=== PATIENT | female | born 1980 | race Caucasian/White ===

== ENCOUNTER 2016-02-18 19:00 | Emergency (ER) | payer OTHER ==
--- NOTE | 2016-02-18 19:25 | ER Document Report ---
ED Medical Screen (RME) - General Stated Complaint: PALPITATIONS,RAPID HEART RATE Time seen by provider: 19:19 Mode of Arrival: Ambulatory Information source: Patient Notes: 35-year-old female complaining of skipping beats, then palpitations that she has had for [address] Booth who has been her physician (albert krishnamurthy) wanted to do an ablation for the SVT prior to them moving to [place], but could not get the SVT to repeat itself enough in the lab to do the procedure 2008. She has recently moved back and the last 2 days has had increased episodes of the palpitations at this point she feels like it is easing off. Her EKG in triage is normal sinus rhythm. Recently completed the zyoOcclutechtch remote 3 week monitor and doesn't know the results yet. TRAVEL OUTSIDE OF THE [place] IN LAST 30 DAYS: No - Related Data Allergies/Adverse Reactions: acetaminophen [From Percocet] Allergy (Severe, Verified 11/17/14 09:00) Generalized Itching oxycodone HCl [From Percocet] Allergy (Severe, Verified 11/17/14 09:00) Generalized Itching tree nuts Allergy (Severe, Uncoded 06/26/10 14:45) itch,stuffy head Past Medical History - Past Medical History Cardiac Medical History: Denies: Hx Coronary Artery Disease, Hx Heart Attack, Hx Hypertension Pulmonary Medical History: Denies: Hx Asthma, Hx Bronchitis, Hx COPD, Hx Pneumonia Neurological Medical History: Denies: Hx Cerebrovascular Accident, Hx Seizures Musculoskeltal Medical History: Denies Hx Arthritis Past Surgical History: Reports: Hx Section, Hx Cholecystectomy, Hx Orthopedic Surgery - right knee sx. Denies: Hx Pacemaker - Immunizations Immunizations up to date: Yes Hx Diphtheria, Pertussis, Tetanus Vaccination: Yes
--- NOTE | 2016-02-18 21:28 | ER Document Report ---
ED Cardiac - General Chief Complaint: Palpitations Stated Complaint: PALPITATIONS,RAPID HEART RATE Mode of Arrival: Ambulatory Information source: Patient Notes: Patient is a 35-year-old female who presents to the ER today for complaints of palpitations that should she has had since 2005. Patient does see a ornament stapler for them and has been diagnosed with PVCs but has not been on medication in many years for it. She states that the last couple of days she has had PVCs a lot more than she usually does. She states that it is only uncomfortable in her chest because she can feel the palpitations, but denies any pain, shortness of breath, nausea, vomiting, sweating. She states that they last for minutes at a time. She just finished wearing a monitor for 2 weeks and they didn't catch them on the monitor is PVCs. She is due to follow up with ornament stapler this week but called the nurse today and was told to come to the emergency department. TRAVEL OUTSIDE OF THE [place] IN LAST 30 DAYS: No - Related Data Allergies/Adverse Reactions: acetaminophen [From Percocet] Allergy (Severe, Verified 11/17/14 09:00) Generalized Itching oxycodone HCl [From Percocet] Allergy (Severe, Verified 11/17/14 09:00) Generalized Itching tree nuts Allergy (Severe, Uncoded 06/26/10 14:45) itch,stuffy head Past Medical History - General Information source: Patient - Social History Smoking Status: Unknown if Ever Smoked Family History: Reviewed & Not Pertinent Patient has suicidal ideation: No Patient has homicidal ideation: No - Past Medical History Cardiac Medical History: Denies: Hx Coronary Artery Disease, Hx Heart Attack, Hx Hypertension Pulmonary Medical History: Denies: Hx Asthma, Hx Bronchitis, Hx COPD, Hx Pneumonia Neurological Medical History: Denies: Hx Cerebrovascular Accident, Hx Seizures Musculoskeltal Medical History: Denies Hx Arthritis Past Surgical History: Reports: Hx Section, Hx Cholecystectomy, Hx Orthopedic Surgery - right knee sx. Denies: Hx Pacemaker - Immunizations Immunizations up to date: Yes Hx Diphtheria, Pertussis, Tetanus Vaccination: Yes Review of Systems - Review of Systems Constitutional: No symptoms reported EENT: No symptoms reported Cardiovascular: See HPI Respiratory: No symptoms reported Gastrointestinal: No symptoms reported Genitourinary: No symptoms reported Female Genitourinary: No symptoms reported Musculoskeletal: No symptoms reported Skin: No symptoms reported Hematologic/Lymphatic: No symptoms reported Neurological/Psychological: No symptoms reported Physical Exam - Notes Notes: PHYSICAL EXAMINATION: GENERAL: Well-appearing and in no acute distress. HEAD: Atraumatic, normocephalic. EYES: Pupils equal round and reactive to light, extraocular movements intact, sclera anicteric, conjunctiva are normal. NECK: Normal range of motion, supple without lymphadenopathy LUNGS: CTAB and equal. No wheezes rales or rhonchi. HEART: Regular rate and rhythm without murmurs ABDOMEN: Soft, no tenderness. No guarding, no rebound EXTREMITIES: Normal range of motion, no pitting edema. No cyanosis. NEUROLOGICAL: Cranial nerves grossly intact. Normal sensory/motor exams. PSYCH: Normal mood, normal affect. SKIN: Warm, Dry, normal turgor, no rashes or lesions noted Course - Re-evaluation Re-evalutation: 02/18/16 21:29 EKG here revealed a normal sinus rhythm with no evidence of PACs or PVCs, other abnormality at a rate of 68 bpm. Patient did state that she kept going in and out of PVCs here but we never caught them on EKG or when I was examining her. At this time I will place her on a beta michelle which she has actually tried before but it has been many years and have her follow-up with the ornament stapler. She declines any blood work today and I agree that it is not likely necessary at this time as she has a pre-existing diagnosis of PVCs and clinically it sounds like what is going on today. Discharge - Discharge Clinical Impression: PVC (premature ventricular contraction) Condition: Stable Disposition: HOME, SELF-CARE Instructions: Beta Blockers ([facility]), Palpitations (Irregular or Rapid Heartrate) ([facility]) Additional Instructions: Return immediately for any new or worsening symptoms. Follow up with ornament stapler, call tomorrow to make followup appointment. Prescriptions: Propranolol HCl [Inderal 10 mg Tablet] 10 mg PO Q12 #28 tab
[2016-02-18] MEDS ORDERED: PROPRANOLOL HCL 10 MG TABLET PO ONE (21:33)
[2016-02-18 22:04] VITALS: BP 112/72
--- NOTE | 2016-02-19 13:43 | EKG REPORT ---
SEVERITY:- NORMAL ECG - SINUS RHYTHM : Confirmed by: Luisana Murphy MD 19-Feb-2016 13:42:23
== END 2016-02-18 22:05 | disposition home or self-care (01) ==
LOC: ER 19:00
DX: I49.3 Ventricular premature depolarization (principal); R00.2 Palpitations; Z88.6 Allergy status to analgesic agent; Z91.018 Allergy to other foods; Z90.49 Acquired absence of other specified parts of digestive tract
CPT/HCPCS: 93005; 93010; 99284

== ENCOUNTER 2016-12-28 05:54 | Emergency (ER) | payer OTHER ==
[2016-12-28 06:09] VITALS: BP 118/83
--- NOTE | 2016-12-28 07:30 | ER Document Report ---
HPI - HPI Patient complains to provider of: facial pain Pain Level: 4 Context: Patient is a 36-year-old female presents emergency department complaining of rhinorrhea for 1 week with new onset sinus congestion yesterday. Patient states that the only thing she is taking [id number] with Tylenol for pain but otherwise denies any decongestants or cold medications. Patient denies any fevers, chills, nausea, vomiting, cough, shortness of breath, sore throat. Otherwise healthy female. Past Medical History - Social History Smoking Status: Smoker,Current Status Unk Family History: Reviewed & Not Pertinent - Past Medical History Cardiac Medical History: Denies: Hx Coronary Artery Disease, Hx Heart Attack, Hx Hypertension Pulmonary Medical History: Denies: Hx Asthma, Hx Bronchitis, Hx COPD, Hx Pneumonia Neurological Medical History: Denies: Hx Cerebrovascular Accident, Hx Seizures Musculoskeltal Medical History: Denies Hx Arthritis Past Surgical History: Reports: Hx Section, Hx Cholecystectomy, Hx Orthopedic Surgery - right knee sx. Denies: Hx Pacemaker - Immunizations Immunizations up to date: Yes Hx Diphtheria, Pertussis, Tetanus Vaccination: Yes Vertical Provider Document - CONSTITUTIONAL Notes: PHYSICAL EXAM GENERAL: Alert, interacts well. HEENT: NCAT, pale conjunctiva, extraocular movements intact, pupils PERRL. external ear normal, no evidence of external auditory canal tenderness, blood/ drainage, cerumen impaction, TM intact with bulging without evidence of effusion , injection, MMM NECK: Full range of motion. Supple. Trachea midline. LUNGS: Clear to auscultation bilaterally, no wheezes, rales, or rhonchi. No respiratory distress. HEART: Regular rate and rhythm. No murmurs, gallops, or rubs. NEUROLOGICAL: Alert and oriented x4. Normal speech. PSYCH: Normal affect, normal mood. SKIN: Warm, dry, normal turgor. No rashes or lesions noted. - INFECTION CONTROL TRAVEL OUTSIDE OF THE [place] IN LAST 30 DAYS: No - RESPIRATORY O2 Sat by Pulse Oximetry: 97 Course - Re-evaluation Re-evalutation: 12/28/16 07:35 Patient is a 36 old female is hemodynamically stable, no acute distress and afebrile. Presentation is consistent with rhinorrhea and sinus congestion without evidence of infection. Patient is afebrile without evidence of purulent drainage or sinus tenderness or erythema. presentation is most consistent with a viral upper respiratory infection. Patient is overall well appearance, vitals within normal limits, well-hydrated. Patient denies any headache, neck pain, and has no evidence of meningismus on examination. Lungs are clear bilaterally. No evidence of respiratory distress. Based on clinical exam and history, I do not suspect an acute pneumonia, meningitis, strep pharyngitis, or an acute encephalitis. No laboratory or imaging testing is indicated at this time. Will discharge patient with return precautions and followup recommendations. They are in agreement this plan have verbalized understanding return precautions. - Vital Signs Vital signs: Temp Pulse Resp BP Pulse Ox 97.9 F 73 16 118/83 97 12/28/16 06:08 12/28/16 06:08 12/28/16 06:08 12/28/16 06:08 12/28/16 06:08 Discharge - Discharge Clinical Impression: Sinus congestion Condition: Good Disposition: HOME, SELF-CARE Additional Instructions: Your symptoms are most likely due to a viral infection it should resolve over the next 7-14 days. You should take [id number] guanfacine per bottle instructions to help thin the mucus. For nasal congestion: I would recommend that you get hpcg-lmz-qxziryo oxymetazoline also known is afrin. Use only per bottle instructions and be sure to never use this for more than 3 days if you can develop severe rebound congestion. You can also utilize pseudophedrine. you may also use tylenol or ibuprofen as needed for aches and thorat discomfort. Please be sure to drink plenty of fluids and get rest. Return to the emergency department he began having difficulty breathing, chest pain, persistent vomiting, or any other symptoms that are concerning to you. Prescriptions: Methylprednisolone [Medrol Dosepack (4 mg/Tab) 21 Tab/Dosepak] 4 mg PO ASDIR PRN #21 tab.ds.pk PRN Reason:
[2016-12-28] MEDS ORDERED: IBUPROFEN 800 MG TABLET PO ONE (07:33)
[2016-12-28] MEDS ORDERED: PSEUDOEPHEDRINE HCL 30 MG TABLET PO ONE (07:33)
== END 2016-12-28 07:48 | disposition home or self-care (01) ==
LOC: ER 05:54
DX: R09.81 Nasal congestion (principal); R51 Headache; F17.200 Nicotine dependence, unspecified, uncomplicated; Z90.49 Acquired absence of other specified parts of digestive tract
CPT/HCPCS: 99283

== ENCOUNTER 2017-08-11 12:08 | Emergency (ER) | payer OTHER ==
[2017-08-11 12:15] VITALS: BP 114/79
[2017-08-11] MEDS ORDERED: IBUPROFEN 800 MG TABLET PO ONE (13:00)
--- NOTE | 2017-08-11 13:02 | ER Document Report ---
ED Fall - General Chief Complaint: Fall Stated Complaint: FALL Time Seen by Provider: 08/11/17 12:49 Mode of Arrival: Wheelchair Information source: Patient Notes: 37-year-old female fell over a wall landing on a metal tree stand. She has pain and her left foot ankle and knee. She is alert and oriented respirations regular and unlabored and is able to hobble but not walk with a steady gait due to the pain. TRAVEL OUTSIDE OF THE [place] IN LAST 30 DAYS: No - HPI Occurred: Just prior to arrival Where: Home, Public place Context: Tripped Associated symptoms: None Location of injury/pain: Ankle, Foot, Knee Quality of pain: Sharp, Throbbing Severity: Mild Pain Level: 2 - Related data Allergies/Adverse Reactions: acetaminophen [From Percocet] Adverse Reaction (Severe, Verified 08/11/17 12:09) Generalized Itching oxycodone HCl [From Percocet] Adverse Reaction (Severe, Verified 08/11/17 12:09) Generalized Itching tree nuts Allergy (Severe, Uncoded 08/11/17 12:09) itch,stuffy head Past Medical History - General Information source: Patient - Social History Smoking Status: Never Smoker Chew tobacco use (# tins/day): No Frequency of alcohol use: Occasional Drug Abuse: None Lives with: Family Family History: Reviewed & Not Pertinent Patient has suicidal ideation: No Patient has homicidal ideation: No - Past Medical History Cardiac Medical History: Reports: None Pulmonary Medical History: Reports: None EENT Medical History: Reports: None Neurological Medical History: Reports: None Endocrine Medical History: Reports: None Renal/ Medical History: Reports: None Malignancy Medical History: Reports: None GI Medical History: Reports: None Musculoskeltal Medical History: Reports None Skin Medical History: Reports None Psychiatric Medical History: Reports: None Traumatic Medical History: Reports: None Infectious Medical History: Reports: None Past Surgical History: Reports: Hx Section, Hx Cholecystectomy, Hx Orthopedic Surgery - right knee sx - Immunizations Immunizations up to date: Yes Hx Diphtheria, Pertussis, Tetanus Vaccination: Yes Review of Systems - Review of Systems Constitutional: No symptoms reported EENT: No symptoms reported Cardiovascular: No symptoms reported Respiratory: No symptoms reported Gastrointestinal: No symptoms reported Genitourinary: No symptoms reported Female Genitourinary: No symptoms reported Musculoskeletal: Other - Pain to the foot ankle and knee Skin: No symptoms reported Hematologic/Lymphatic: No symptoms reported Neurological/Psychological: No symptoms reported -: Yes All other systems reviewed and negative Physical Exam - Vital signs Vitals: Temp Pulse Resp BP Pulse Ox 98.1 F 73 14 114/79 97 08/11/17 12:13 08/11/17 12:13 08/11/17 12:13 08/11/17 12:13 08/11/17 12:13 Interpretation: Normal - General General appearance: Appears well, Alert - HEENT Head: Normocephalic, Atraumatic Eyes: Normal Pupils: PERRL - Respiratory Respiratory status: No respiratory distress Chest status: Nontender Breath sounds: Normal Chest palpation: Normal - Cardiovascular Rhythm: Regular Heart sounds: Normal auscultation Murmur: No - Abdominal Inspection: Normal Distension: No distension Bowel sounds: Normal Tenderness: Nontender Organomegaly: No organomegaly - Back Back: Normal, Nontender - Extremities General upper extremity: Normal inspection, Nontender, Normal color, Normal ROM , Normal temperature General lower extremity: Normal inspection, Normal temperature, Normal weight bearing Knee: Tender, Pain with ROM, Tender joint line. No: Abrasion, Deformity, Dislocation, Drawer's test instability, Ecchymosis, Instability, Joint effusion , Laceration, Laxity with varus stress, Patellar tendon intact, Popliteal fossa tender Calf: Normal, Nontender Ankle: Tender, Ecchymosis, Limited ROM - Due to pain. No: Edema, Instability, Positive Barcneas's test, Unable to bear weight Foot: Tender, Ecchymosis, No evidence of FB. No: Abrasion, Deformity, Edema, Instability, Laceration, Metatarsal compress. pain, Nail injury, Navicular tenderness, Tender 5th metatarsal, Unable to bear weight - Neurological Neuro grossly intact: Yes Cognition: Normal Orientation: AAOx4 Adams Coma Scale Eye Opening: Spontaneous Adams Coma Scale Verbal: Oriented Sisi Coma Scale Motor: Obeys Commands Sisi Coma Scale Total: 15 Speech: Normal Motor strength normal: LUE, RUE, LLE, RLE Sensory: Normal - Psychological Associated symptoms: Normal affect, Normal mood - Skin Skin Temperature: Warm Skin Moisture: Dry Skin Color: Normal Course - Re-evaluation Re-evalutation: 08/11/17 21:38 X-rays discussed with patient and written reports given to patient. Patient requested a support for her foot and a postop shoe and crutches were ordered. She then stated that she did not with a postop shoe she wanted the Randy wrap to the ankle. Patient was then treated with the Randy wrap and crutches and discharged home. Patient was given instructions for elevation ice and ibuprofen. Patient verbalized understanding of instructions. - Vital Signs Vital signs: Temp Pulse Resp BP Pulse Ox 98.1 F 73 14 114/79 97 08/11/17 12:13 08/11/17 12:13 08/11/17 12:13 08/11/17 12:13 08/11/17 12:13 - Diagnostic Test Radiology reviewed: Image reviewed, Reports reviewed Discharge - Discharge Clinical Impression: Fall Qualifiers: Encounter type: initial encounter Qualified Code(s): W19.XXXA - Unspecified fall, initial encounter Contusion of left foot Qualifiers: Encounter type: initial encounter Qualified Code(s): S90.32XA - Contusion of left foot, initial encounter Contusion of left ankle Qualifiers: Encounter type: initial encounter Qualified Code(s): S90.02XA - Contusion of left ankle, initial encounter Contusion of left knee Qualifiers: Encounter type: initial encounter Qualified Code(s): S80.02XA - Contusion of left knee, initial encounter Condition: Stable Disposition: HOME, SELF-CARE Additional Instructions: CONTUSION: Your injury has resulted in a contusion -- a crushing of the deep tissues. No injury to important structures was detected during the physician's exam. Contusions vary in the amount of pain they cause, and in the length of time required for healing. Typically, the area will become bruised, and will remain painful to touch for two or three weeks. However, most patients are back to working and playing within a few days. After the initial period of rest and cold-packs, your symptoms (together with the doctor's recommendations) will determine how rapidly you can get back to full activity. Usually this means "do what feels okay, but don't do things that hurt." If re-examination was recommended, it's important to follow up as instructed. Call the doctor or return any time if pain increases, if swelling becomes severe, if you develop numbness or weakness in an injured extremity, or if any other alarming symptoms occur. USE OF TYLENOL (ACETAMINOPHEN): Acetaminophen may be taken for pain relief or fever control. It's much safer than aspirin, offering a wider range of "safe" dosages. It is safe during . Some brand names are Tylenol, Panadol, Datril, Anacin 3, Tempra, and Liquiprin. Acetaminophen can be repeated every four hours. The following are maximum recommended dosages: WEIGHT Dose Drops Elixir Chewable( 80mg) (LBS.) drprs=droppers tsp=teaspoon 6 40 mg 0.4 ml (1/2) 6-11 80 mg 0.8 ml (full) tsp 1 tab 12-16 120 mg 1 1/2 drprs 3/4 tsp 1 1/2 tabs 17-23 160 mg 2 drprs 1 tsp 2 tabs 24-30 240 mg 3 drprs 1 1/2 tsp 3 tabs 30-35 320 mg 2 tsp 4 tabs 36-41 360 mg 2 1/4 tsp 4 1/2 tabs 42-47 400 mg 2 1/2 tsp 5 tabs 48-53 480 mg 3 tsp 6 tabs 54-59 520 mg 3 1/4 tsp 6 1/2 tabs 60-64 560 mg 3 1/2 tsp 7 tabs 65-70 600 mg 3 3/4 tsp 7 1/2 tabs 71-76 640 mg 4 tsp 8 tabs 77-82 720 mg 4 1/2 tsp 9 tabs 83-88 800 mg 5 tsp 10 tabs >89 pounds or adults 650 mg to 900 mg Acetaminophen can be repeated every four hours. Maximum dose not to exceed 4000 mg a day. These maximum recommended dosages are slightly higher than the dosages written on the product container, but these dosages are very safe and below the toxic dosage for acetaminophen. RANDY WRAP: A compression dressing (randy wrap) has been placed. This helps hold the area still. It limits swelling and internal bleeding. The wrap should be comfortably snug -- not tight. You should feel a sense of pressure, but not severe pain under the wrap. Unless the physician tells you otherwise, you can adjust the wrap for comfort. If the wrap causes symptoms suggesting it's too tight -- uncomfortable pressure, swelling or discoloration beyond the wrap, numbness, or severe pain - - you must loosen the wrap. If these symptoms don't resolve promptly, return for re-evaluation. USE OF CRUTCHES: The doctor has recommended that you not bear weight at this time. You will need to use crutches. Adjust the crutches so the tops come to about two inches under the armpit while you are standing upright. Use your hands -- not your armpits -- to support your weight. To get into a chair, support yourself with one crutch on the injured side. Hold the chair with the other hand, then lower yourself while putting all your weight on the good leg. Going up stairs is `good leg up, step up, then bring up crutches and bad leg.' Down stairs is `bad leg and crutches down, then bring good leg down.' If you develop numbness or swelling in an arm or hand, you are using the crutches incorrectly. Return if you are having any problems with the crutches. ICE & ELEVATION: Apply ice packs frequently against the painful area. Many different schedules are recommended, such as "20 minutes on, 20 minutes off" or "one hour ice, two hours rest." If you need to work, you may need to go longer between ice treatments. You should plan to have the area ice packed AT LEAST one- fourth of the time. The ice should be applied over the wrap, tape, or splint, or over a layer of cloth -- not directly against the skin. Some ice bags have a built-in cloth and can be put directly on the skin. Your injured part should be elevated as much as possible over the next 48 hours. Try to keep the injury above the level of the heart. Avoid use of the injured area. Elevation and rest will decrease the swelling. USE OF PJUI-KON-NMMORSV IBUPROFEN: Ibuprofen (Advil, Nuprin, Medipren, Motrin IB) is a medication for fever and pain control. In addition, it has anti- inflammatory effects which may be beneficial, especially in the treatment of injuries. It's best to take ibuprofen with food. Persons with ulcer disease or allergy to aspirin should notify their physician of this before taking ibuprofen. Ibuprofen can be given every four to six hours, for a total of four doses daily. Age Pain or fever dose Antiinflammatory dose 6-8 yr 200 mg (1 tab) 200 mg (1 tab) 9-11 yr 200 mg (1 tab) 200-400 mg (1-2 tab) 11-14 yr 200-400 mg (1-2 tab) 400 mg (2 tab) 15-adult 400 mg (2 tab) 600 mg (3 tab) FOLLOW-UP CARE: If you have been referred to a physician for follow-up care, call the physician s office for an appointment as you were instructed or within the next two days. If you experience worsening or a significant change in your symptoms, notify the physician immediately or return to the Emergency Department at any time for re-evaluation. Referrals: SONIYA CORTEZ MD [Primary Care Provider] - Follow up as needed NOHELIA GÓMEZ DO [ACTIVE STAFF] - Follow up as needed
--- NOTE | 2017-08-11 13:32 | RADIOLOGY REPORT (SQ) ---
EXAM DESCRIPTION: ANKLE LEFT COMPLETE COMPLETED DATE/TIME: 08/11/2017 1:11 pm REASON FOR STUDY: fall pian COMPARISON: None. NUMBER OF VIEWS: Three views. TECHNIQUE: AP, lateral, and oblique radiographic images acquired of the left ankle. LIMITATIONS: None. FINDINGS: MINERALIZATION: Normal. BONES: No acute fracture or dislocation. No worrisome bone lesions. JOINTS: No effusions. SOFT TISSUES: No soft tissue swelling. No foreign body. OTHER: No other significant finding. IMPRESSION: NEGATIVE STUDY OF THE LEFT ANKLE. NO RADIOGRAPHIC EVIDENCE OF ACUTE INJURY. TECHNICAL DOCUMENTATION: JOB ID: [id number] [employer]- All Rights Reserved Reading location - IP/workstation name: [email or web address]
--- NOTE | 2017-08-11 13:32 | RADIOLOGY REPORT (SQ) ---
EXAM DESCRIPTION: FOOT LEFT COMPLETE COMPLETED DATE/TIME: 08/11/2017 1:11 pm REASON FOR STUDY: fall pian COMPARISON: None. NUMBER OF VIEWS: Three views. TECHNIQUE: AP, lateral and oblique radiographic images acquired of the left foot. LIMITATIONS: None. FINDINGS: MINERALIZATION: Normal. BONES: No acute fracture or dislocation. No worrisome bone lesions. JOINTS: No effusions. SOFT TISSUES: No soft tissue swelling. No foreign body. OTHER: No other significant finding. IMPRESSION: NEGATIVE STUDY OF THE LEFT FOOT. NO RADIOGRAPHIC EVIDENCE OF ACUTE INJURY. TECHNICAL DOCUMENTATION: JOB ID: [id number] [employer]- All Rights Reserved Reading location - IP/workstation name: [email or web address]
--- NOTE | 2017-08-11 13:33 | RADIOLOGY REPORT (SQ) ---
EXAM DESCRIPTION: KNEE LEFT 4 VIEW COMPLETED DATE/TIME: 08/11/2017 1:11 pm REASON FOR STUDY: fall pian COMPARISON: None. NUMBER OF VIEWS: Four views. TECHNIQUE: AP, lateral, and both oblique radiographic images acquired of the left knee. LIMITATIONS: None. FINDINGS: MINERALIZATION: Normal. BONES: No acute fracture or dislocation. No worrisome bone lesions. JOINT: No effusion. SOFT TISSUES: No soft tissue swelling. No radio-opaque foreign body. OTHER: No other significant finding. IMPRESSION: NEGATIVE STUDY OF THE LEFT KNEE. NO RADIOGRAPHIC EVIDENCE OF ACUTE INJURY. TECHNICAL DOCUMENTATION: JOB ID: [id number] [employer]- All Rights Reserved Reading location - IP/workstation name: [email or web address]
== END 2017-08-11 14:07 | disposition home or self-care (01) ==
LOC: ER 12:08
DX: S90.32XA Contusion of left foot, initial encounter (principal); S90.02XA Contusion of left ankle, initial encounter; S80.02XA Contusion of left knee, initial encounter; M79.672 Pain in left foot; M25.572 Pain in left ankle and joints of left foot; M25.562 Pain in left knee; W17.89XA Other fall from one level to another, initial encounter; Z91.018 Allergy to other foods
CPT/HCPCS: 99283

== ENCOUNTER → 2018-05-24 | Outpatient (CLI) | payer OTHER ==
--- NOTE | 2018-05-24 09:54 | RADIOLOGY REPORT (SQ) ---
EXAM DESCRIPTION: MRI LUMBAR SPINE WITHOUT COMPLETED DATE/TIME: 05/24/2018 8:22 am REASON FOR STUDY: LUMBAGO W/SCIATICA, LEFT SIDE (M54.42) M54.42 LUMBAGO WITH SCIATICA, LEFT SIDE COMPARISON: None. TECHNIQUE: Sagittal and Axial imaging includes T1, T2, STIR and gradient echo sequences. Coronal T2/ HASTE imaging. LIMITATIONS: None. FINDINGS: VISUALIZED UPPER ABDOMEN: Limited evaluation. No acute or suspicious findings suggested. SEGMENTATION: No transitional anatomy. The lowest well-developed disc space is labeled L5-S1. ALIGNMENT: Anatomic. VERTEBRAE: Intact. BONE MARROW: Normal. No marrow replacement or reactive changes. DISC SIGNAL: Normal. No significant abnormal signal or loss of height. POSTERIOR ELEMENTS: Previous resection of the left transverse process of L5. Otherwise intact. No pars defect evident. HARDWARE: None in the spine. CORD AND CONUS: Normal in size and signal intensity. Conus at the appropriate level. SOFT TISSUES: No aortic aneurysm seen. No bulky retroperitoneal adenopathy or mass. No paraspinal mas s or fluid. L1-L2: No significant spinal stenosis or exit foraminal stenosis. L2-L3: No significant spinal stenosis or exit foraminal stenosis. L3-L4: No significant spinal stenosis or exit foraminal stenosis. L4-L5: No significant spinal stenosis or exit foraminal stenosis. L5-S1: No significant spinal stenosis or exit foraminal stenosis. LOWER THORACIC: Incompletely imaged. No stenosis seen. SACRUM: Visualized upper sacrum intact. OTHER: No other significant findings. IMPRESSION: PREVIOUS RESECTION OF THE LEFT TRANSVERSE PROCESS OF L 5. OTHERWISE UNREMARKABLE MRI [facility] MB[facility] SPINE. TECHNICAL DOCUMENTATION: JOB ID: [id number]- All Rights Reserved Reading location - IP/workstation name: [email or web address]
== END ==
LOC: RAD 07:36
PROVIDERS: ATTEND Physician Assistant
DX: M54.42 Lumbago with sciatica, left side (principal)
CPT/HCPCS: 72148

== ENCOUNTER 2018-07-12 07:05 | Emergency (ER) | payer OTHER ==
--- NOTE | 2018-07-12 08:32 | ER Document Report ---
ED General - General Chief Complaint: Headache Stated Complaint: PAIN IN LEFT SIDE OF HEAD Time Seen by Provider: 07/12/18 07:59 Primary Care Provider: AKASH NAVARRO PA [NO LOCAL MD] - Follow up as needed Notes: 38-year-old female with no past medical history presents emergency department with chief complaint of acute headache since yesterday. She describes it as a stabbing pain in the left side of her head. She said the pain is 5/5. She has no previous history of headaches. She does have some very mild neck pain in the upper trap at the insertion point of the base of her skull. She denies any vision changes, diplopia, blurred vision, states that the pain is intermittent but when it comes it is "like someone is taking a knife and jamming it in my head". Denies confusion or slurred speech. She denies any acute shortness of breath or chest pain, she denies any palpitations or irregular heartbeat, she denies any numbness or tingling in her arms or legs. She denies neck stiffness. No family history of brain aneurysms or subarachnoid hemorrhage. No other complaints. TRAVEL OUTSIDE OF THE [place] IN LAST 30 DAYS: No - Related Data Allergies/Adverse Reactions: tree nuts Allergy (Severe, Uncoded 08/11/17 12:09) itch,stuffy head Past Medical History - Social History Smoking Status: Never Smoker Family History: Reviewed & Not Pertinent - Past Medical History Cardiac Medical History: Denies: Hx Coronary Artery Disease, Hx Heart Attack, Hx Hypertension Pulmonary Medical History: Denies: Hx Asthma, Hx Bronchitis, Hx COPD, Hx Pneumonia Neurological Medical History: Denies: Hx Cerebrovascular Accident, Hx Seizures Renal/ Medical History: Denies: Hx Peritoneal Dialysis Musculoskeletal Medical History: Denies Hx Arthritis Past Surgical History: Reports: Hx Section, Hx Cholecystectomy, Hx Orthopedic Surgery - right knee sx. Denies: Hx Pacemaker - Immunizations Immunizations up to date: Yes Hx Diphtheria, Pertussis, Tetanus Vaccination: Yes Review of Systems - Review of Systems Constitutional: No symptoms reported EENT: No symptoms reported Cardiovascular: See HPI Respiratory: See HPI Gastrointestinal: See HPI Genitourinary: No symptoms reported Female Genitourinary: No symptoms reported Musculoskeletal: No symptoms reported Skin: No symptoms reported Hematologic/Lymphatic: No symptoms reported Neurological/Psychological: See HPI Physical Exam - Vital signs Vitals: Temp Pulse Resp BP Pulse Ox 97.9 F 76 16 112/77 100 07/12/18 07:09 07/12/18 07:09 07/12/18 07:09 07/12/18 07:09 07/12/18 07:09 - Notes Notes: PHYSICAL EXAMINATION: Reviewed vital signs and charting by RN GENERAL: Alert, interacts well. No acute distress. HEAD: Normocephalic, atraumatic. EYES: Pupils equal, round, and reactive to light. Extraocular movements intact. ENT: Oral mucosa moist, tongue midline. NECK: Full range of motion. Supple. Trachea midline. LUNGS: Clear to auscultation bilaterally, no wheezes, rales, or rhonchi. No respiratory distress. HEART: Regular rate and rhythm. No murmur ABDOMEN: soft, non-tender. No distention. Bowel sounds present EXTREMITIES: Moves all 4 extremities spontaneously. No edema, No cyanosis. NEURO: Pupils equal round reactive to light 3 mm bilateral, extraocular movements intact, cranial nerves III through XII grossly intact, no pronator drift, no focal neuro deficits, strength 5/5 in all 4 extremities and equal, no cerebellar dysfunction PSYCH: Normal affect, normal mood. SKIN: Warm, dry, normal turgor. No rashes or lesions noted. Course - Re-evaluation Re-evalutation: 07/12/18 11:57 Patient is overall well-appearing and presents without a headache but said that in the waiting room she had 2 severe attacks. Normal neurologic exam. I explained to her that we could not absolutely rule out an aneurysmal subarachnoid hemorrhage or brain aneurysm but I have very low suspicion for it. The patient broke down at the bedside and was concerned because she has 3 young children and had a friend who from a brain aneurysm not too long ago. I explained to her the risks involved with doing a work-up for subarachnoid hemorrhage of brain aneurysm. She was of sound mind and stated that she did want to pursue the work-up for her peace of mind and to ensure her health. A work-up was initiated and CT head without contrast was negative for any tumor, midline shift, or any intracranial bleed. CTA head was done which did not show any evidence of aneurysm. A lumbar puncture was done in the radiologist suite and CSF results are pending. 07/12/18 12:46 CSF was unremarkable for RBCs or xanthochromia. At this time patient has a negative work-up. Her vital signs are within normal limits and she is stable for discharge. - Vital Signs Vital signs: Temp Pulse Resp BP Pulse Ox 97.9 F 76 16 112/77 100 07/12/18 07:09 07/12/18 07:09 07/12/18 07:09 07/12/18 07:09 07/12/18 07:09 - Laboratory Result Diagrams: 07/12/18 08:55 07/12/18 08:55 Discharge - Discharge Clinical Impression: Headache Qualifiers: Headache type: unspecified Headache chronicity pattern: acute headache Intractability: not intractable Qualified Code(s): R51 - Headache Condition: Good Disposition: HOME, SELF-CARE Additional Instructions: You were seen in the emergency department this morning for your work-up was negative which is all very reassuring. We have definitively ensured that there is no evidence of a subarachnoid hemorrhage for a cerebral aneurysm at this time. It is unclear why you had this he can be rest assured it was not from a dangerous condition today. You can do symptomatic treatment with Motrin or Tylenol, or you can take Excedrin [id number] if you continue to have these symptoms. If you think that it might be due to allergies and sinus pain you can also take Sudafed from behind the pharmacy because that is actually pseudoephedrine but make sure that you hydrate well as it is a stimulant. If you develop any acute vision changes, have a severe unremitting headache, you get numbness or tingling or paralysis in any of your extremities, you pass out, or you have any other concerning symptoms do not hesitate to return to the emergency room for reevaluation. Referrals: AKASH NAVARRO PA [NO LOCAL MD] - Follow up as needed
[2018-07-12 09:19] LABS: ABSOLUTE BASOPHILS # (AUTO) 0.1 10^3/uL (0.0-0.2); ABSOLUTE EOSINOPHILS # (AUTO) 0.3 10^3/uL (0.0-0.6); ABSOLUTE MONOCYTES (AUTO) 0.5 10^3/uL (0.1-1.4); ABSOLUTE NEUT (AUTO) 3.8 10^3/uL (1.7-8.2); BASOPHILS % (AUTO) 0.8 % (0-2); EOSINOPHILS % (AUTO) 4.4 % (0-6); HEMATOCRIT 42.4 % (36.0-47.0); HEMOGLOBIN 14.5 g/dL (12.0-15.5); LYMPHOCYTES % (AUTO) 30.3 % (13-45); MEAN CORPUSCULAR HEMOGLOBIN 31.4 pg (27.0-33.4); MEAN CORPUSCULAR HGB CONC 34.1 g/dL (32.0-36.0); MEAN CORPUSCULAR VOLUME 92 fl (80-97); MONOCYTES % (AUTO) 7.4 % (3-13); PLATELET COUNT 314 10^3/uL (150-450); RED BLOOD COUNT 4.61 10^6/uL (3.72-5.28); RED CELL DISTRIBUTION WIDTH 12.3 % (11.5-14.0); SEGMENTED NEUTROPHILS % (AUTO) 57.1 % (42-78); TOTAL CELLS COUNTED % (AUTO) 100 %; WHITE BLOOD COUNT 6.6 10^3/uL (4.0-10.5)
[2018-07-12 09:24] LABS: INTERNATIONAL RATION (INR) 0.86; PROTHROMBIN TIME 12.2 SEC (11.4-15.4)
[2018-07-12 09:34] LABS: ANION GAP 9 (5-19); BLOOD UREA NITROGEN 10 mg/dL (7-20); CALCIUM 9.9 mg/dL (8.4-10.2); CARBON DIOXIDE 28 mmol/L (22-30); CHLORIDE 106 mmol/L (98-107); GLUCOSE 91 mg/dL (75-110); POTASSIUM 4.6 mmol/L (3.6-5.0); SODIUM 143.1 mmol/L (137-145)
--- NOTE | 2018-07-12 10:01 | RADIOLOGY REPORT (SQ) ---
EXAM DESCRIPTION: CT HEAD WITHOUT COMPLETED DATE/TIME: 07/12/2018 9:51 am REASON FOR STUDY: New onset HUNTER COMPARISON: None. TECHNIQUE: Axial images acquired through the brain without intravenous contrast. Images reviewed wi th bone, brain and subdural windows. Additional sagittal and coronal reconstructions were generated. Images stored on PACS. All CT scanners at this facility use dose modulation, iterative reconstruction, and/or weight based d osing when appropriate to reduce radiation dose to as low as reasonably achievable (ALARA). [facility]: Dose Right [facility]: CareDose [facility]: Dose Right [facility]: Teradose 4D [facility]: ZOCKO RADIATION DOSE: CT Rad equipment meets quality standard of care and radiation dose reduction techniq ues were employed. CTDIvol: 53.2 mGy. DLP: 1124 mGy-cm. mGy. LIMITATIONS: None. FINDINGS: VENTRICLES: Normal size and contour. CEREBRUM: No masses. No hemorrhage. No midline shift. No evidence for acute infarction. Normal gra y/white matter differentiation. No areas of low density in the white matter. CEREBELLUM: No masses. No hemorrhage. No alteration of density. No evidence for acute infarction. EXTRAAXIAL SPACES: No fluid collections. No masses. ORBITS AND GLOBE: No intra- or extraconal masses. Normal contour of globe without masses. CALVARIUM: No fracture. PARANASAL SINUSES: No fluid or mucosal thickening. SOFT TISSUES: No mass or hematoma. OTHER: No other significant finding. IMPRESSION: NORMAL BRAIN CT WITHOUT CONTRAST. EVIDENCE OF ACUTE STROKE: NO. COMMENT: Quality ID # 436: Final reports with documentation of one or more dose reduction techniques (e.g., Automated exposure control, adjustment of the mA and/or kV according to patient size, use of iterative reconstruction technique) TECHNICAL DOCUMENTATION: JOB ID: [id number] [employer]- All Rights Reserved Reading location - IP/workstation name: [email or web address]
--- NOTE | 2018-07-12 10:03 | RADIOLOGY REPORT (SQ) ---
EXAM DESCRIPTION: CTA HEAD COMPLETED DATE/TIME: 07/12/2018 9:51 am REASON FOR STUDY: New onset HUNTER COMPARISON: None. TECHNIQUE: Post IV contrast scanning, thin section axial imaging through the brain to evaluate the a rterial structures. Source and MIP images are saved and reviewed on PACS. Advanced 3D imaging as volume-rendering, MIPs, SSD performed? yes All CT scanners at this facility use dose modulation, iterative reconstruction, and/or weight based d osing when appropriate to reduce radiation dose to as low as reasonably achievable (ALARA). [facility]: Dose Right [facility]: CareDose [facility]: Dose Right [facility]: Teradose 4D [facility]: Kinesio Capture CONTRAST TYPE AND DOSE: contrast/concentration: Isovue 350.00 mg/ml; Total Contrast Delivered: 70.0 ml; Total Saline Delivered: 75.0 ml RENAL FUNCTION: None required. The patient is less than 50 years old. LIMITATIONS: None. FINDINGS: [place]: The anterior, middle, posterior cerebral arteries are all patent. No ev idence of aneurysm or focal stenosis. POSTERIOR CIRCULATION: The distal vertebral arteries are patent as is the basilar artery. No aneurysm . BRAIN: No gross enhancing lesions as visualized. The superior cerebral hemispheres are not included in the field of view. BONES: Intact as visualized. SINUSES: No fluid or mucosal thickening. OTHER: No other significant finding. IMPRESSION: NO CTA EVIDENCE OF STENOSIS OR ANEURYSM OF THE [place]. TECHNICAL DOCUMENTATION: JOB ID: [id number] Quality ID # 436: Final reports with documentation of one or more dose reduction techniques (e.g., Au tomated exposure control, adjustment of the mA and/or kV according to patient size, use of iterative reconstruction technique) 2010 [employer] All Rights Reserved Reading location - IP/workstation name: [email or web address]
--- NOTE | 2018-07-12 11:28 | RADIOLOGY REPORT (SQ) ---
EXAM DESCRIPTION: LUMBAR PUNCTURE; FLUORO/NEEDLE PLACEMENT/SPINE COMPLETED DATE/TIME: 07/12/2018 11:13 am REASON FOR STUDY: New onset HUNTER >6h; HUNTER COMPARISON: None. FLUOROSCOPY TIME: 28 seconds 1 images saved to PACS. TECHNIQUE: Fluoroscopic guided lumbar puncture. LIMITATIONS: None. PROCEDURE: After written consent and assessment were obtained, the patient was brought into the fluo roscopy room and placed prone on the table. The patient's lower back was prepped in a sterile fashio n and an entry site was selected under live fluoroscopic guidance. The entry site was anesthetized wi th 1% lidocaine. A 22 gauge needle was advanced through the skin and into the thecal sac at the level of L3-L4. After approximately 8 ml was drained, the needle was removed and a sterile bandage was álvaro chaim of the site. Specimens were sent to the lab for testing. A fluoroscopic spot image was saved to PACS confirming level access. FINDINGS: Clear CSF. Opening pressure 19. Closing pressure 12. IMPRESSION: Lumbar puncture under fluoroscopy. No immediate complication. COMMENT: Patient medication list reviewed: Yes- Quality ID# 130:Eligible professional attests to doc umenting in the medical record they obtained, updated, or reviewed the patient's current medications. . Quality ID 145: Final reports for procedures using fluoroscopy that document radiation exposure barbara cecilia, or exposure time and number of fluorographic images (if radiation exposure indices are not avail able) TECHNICAL DOCUMENTATION: JOB ID: [id number] [employer]- All Rights Reserved Reading location - IP/workstation name: [email or web address]
[2018-07-12 12:00] LABS: GLUCOSE,CSF 52 mg/dL (40-70); PROTEIN,CSF 41 mg/dL (12-60)
[2018-07-12 12:10] LABS: APPEARANCE ALL TUBES CLEAR; COLOR ALL TUBES COLORLESS; CSF TUBE NUMBER 1
[2018-07-12 12:11] LABS: CSF TOTAL VOLUME 8.2 CC; VOLUME TUBE 4 2.2 CC
[2018-07-12 12:12] LABS: RED BLOOD CELL,CSF 1 /uL (0-10)
[2018-07-12 12:13] LABS: WHITE BLOOD CELL,CSF 1 /uL (0-5)
[2018-07-12 12:14] LABS: APPEARANCE ALL TUBES CLEAR; COLOR ALL TUBES COLORLESS; CSF TOTAL VOLUME 8.2 CC; CSF TUBE NUMBER 4; VOLUME TUBE 4 2.2 CC
[2018-07-12 12:15] LABS: RED BLOOD CELL,CSF 0 /uL (0-10); WHITE BLOOD CELL,CSF 1 /uL (0-5)
[2018-07-12 13:13] VITALS: BP 106/89
--- NOTE | 2018-07-12 13:57 | EKG REPORT ---
SEVERITY:- NORMAL ECG - SINUS RHYTHM : Confirmed by: Austin Barclay MD 12-Jul-2018 13:56:40
== END 2018-07-12 13:13 | disposition home or self-care (01) ==
LOC: ER 07:05
DX: R51 Headache (principal); Z90.49 Acquired absence of other specified parts of digestive tract
CPT/HCPCS: 36415; 62270; 70450; 70496; 77003; 80048; 82945; 84157; 85025; 85610; 87070; 87205; 89050; 93005; 93010; 99284

== ENCOUNTER 2018-07-14 08:45 | Emergency (ER) | payer OTHER ==
[2018-07-14] MEDS ORDERED: MORPHINE SULFATE 10 MG/ML INJ IV ONE (09:32)
[2018-07-14] MEDS ORDERED: NORMAL SALINE 1000 ML 1,000 ML IV ONE (09:32)
[2018-07-14] MEDS ORDERED: ONDANSETRON HCL INJ/PF 4 MG/2 ML SDV IV ONE (09:32)
[2018-07-14] MEDS ORDERED: RINGERS SOLUTION,LACTATED 2,000 ML IV ONE (10:30)
--- NOTE | 2018-07-14 11:30 | ER Document Report ---
Entered by ADELE SCHILLING SCRIBE 07/14/18 0938 Acting as scribe for:NOAH WALDEN MD ED General - General Chief Complaint: Headache Stated Complaint: HEADACHE Time Seen by Provider: 07/14/18 09:13 Primary Care Provider: SONIYA CORTEZ MD [Primary Care Provider] - Follow up as needed Mode of Arrival: Ambulatory Information source: Patient Notes: Patient is a 38 year old female who presents to the emergency department complaining of a headache onset yesterday. Patient presented to the emergency department 2 days ago complaining of a severe left sided headache and was discharged home after having head CT and CTA and a lumbar puncture performed. Patient states today, the pain is located globally and states she is unable to sit up further stating "it feels like I was hit with a ton of bricks". She also complains of nausea. She denies any vomiting. TRAVEL OUTSIDE OF THE [place] IN LAST 30 DAYS: No - Related Data Allergies/Adverse Reactions: tree nuts Allergy (Severe, Uncoded 07/14/18 08:47) itch,stuffy head Past Medical History - General Information source: Patient - Social History Smoking Status: Never Smoker Cigarette use (# per day): No Chew tobacco use (# tins/day): No Smoking Education Provided: No Frequency of alcohol use: Occasional Drug Abuse: None Lives with: Family Family History: Reviewed & Not Pertinent Patient has suicidal ideation: No Patient has homicidal ideation: No Past Surgical History: Reports: Hx Section, Hx Cholecystectomy, Hx Orthopedic Surgery - right knee sx - Immunizations Immunizations up to date: Yes Hx Diphtheria, Pertussis, Tetanus Vaccination: Yes Review of Systems - Review of Systems Constitutional: No symptoms reported EENT: No symptoms reported Cardiovascular: No symptoms reported Respiratory: No symptoms reported Gastrointestinal: See HPI, Abdominal pain Genitourinary: No symptoms reported Female Genitourinary: No symptoms reported Musculoskeletal: No symptoms reported Skin: No symptoms reported Hematologic/Lymphatic: No symptoms reported Neurological/Psychological: See HPI, Headaches -: Yes All other systems reviewed and negative Physical Exam - Vital signs Vitals: Temp Pulse Resp BP Pulse Ox 98.0 F 70 16 167/83 H 98 07/14/18 08:48 07/14/18 08:48 07/14/18 08:48 07/14/18 08:48 07/14/18 08:48 - Notes Notes: GENERAL: Alert, interacts well. No acute distress. HEAD: Normocephalic, atraumatic. Right temporal scalp tenderness to palpation. EYES: Pupils equal, round, and reactive to light. Extraocular movements intact. ENT: Oral mucosa moist, tongue midline. NECK: Full range of motion. Supple. Trachea midline. LUNGS: Clear to auscultation bilaterally, no wheezes, rales, or rhonchi. No respiratory distress. HEART: Regular rate and rhythm. No murmurs, gallops, or rubs. ABDOMEN: Soft, non-tender. Non-distended. Bowel sounds present in all 4 quadrants. No guarding, rigidity, or rebound. EXTREMITIES: Moves all 4 extremities spontaneously. NEUROLOGICAL: Alert and oriented x3. Normal speech. PSYCH: Normal affect, normal mood. SKIN: Warm, dry, normal turgor. No rashes or lesions noted. Course - Vital Signs Vital signs: Temp Pulse Resp BP Pulse Ox 98.0 F 70 16 167/83 H 98 07/14/18 08:48 07/14/18 08:48 07/14/18 08:48 07/14/18 08:48 07/14/18 08:48 Discharge - Discharge Clinical Impression: Post lumbar puncture headache Condition: Stable Disposition: HOME, SELF-CARE Additional Instructions: Post-Spinal Headache Your headache was caused by leakage of spinal fluid. Sometimes the needle- hole from a spinal tap (or epidural) doesn't seal completely. Fluid continues to leak, causing headache and backache. The headache typically gets worse when you're upright, and eases when lying down. There's often nausea, lighthead edness, and greying of vision when you're sitting or standing. Most post-spinal headaches will go away after a few days. If the symptoms are mild, it's reasonable to rest and wait. You need to rest in bed. Get plenty of fluids. Caffeine, such as coffee or tea, can help this type of headache. The amount of caffeine is about 400 mg (as caffeine pills or caffeinated drinks) each morning, repeated a couple of hours later. Most [id number] caffeine pills are 200 mg, which equals a large cup of coffee or three cans of caffeinated soda. If the symptoms are severe, or aren't improving with rest, a "blood patch" may be done. (A small amount of your own blood is injected against the leaking area. This forms a clot that seals the leak.) Return if the headache becomes more severe, or if there is neck stiffness, fever, chills, repeated vomiting, or other new symptoms. Otherwise, follow-up with your primary care provider if not improving over the next few days. RETURN TO THE EMERGENCY ROOM IF ANY NEW OR WORSENING SYMPTOMS. Referrals: SONIYA CORTEZ MD [Primary Care Provider] - Follow up as needed Scribe Attestation: 07/14/18 11:50 I personally performed the services described in the documentation, reviewed and edited the documentation which was dictated to the scribe in my presence, and it accurately records my words and actions. I personally performed the services described in the documentation, reviewed and edited the documentation which was dictated to the scribe in my presence, and it accurately records my words and actions.
[2018-07-14 12:46] VITALS: BP 122/74
== END 2018-07-14 12:45 | disposition home or self-care (01) ==
LOC: ER 08:45
DX: G97.1 Other reaction to spinal and lumbar puncture (principal); R51 Headache; Z90.49 Acquired absence of other specified parts of digestive tract
CPT/HCPCS: 99283; 96361; 96374; 96375; J2270; J2405; J7030; J7120

== ENCOUNTER 2019-03-15 17:24 | Emergency (ER) | payer OTHER ==
[2019-03-15 17:44] VITALS: BP 131/83
--- NOTE | 2019-03-15 18:38 | EKG REPORT ---
SEVERITY:- NORMAL ECG - SINUS RHYTHM : Confirmed by: Luisana Murphy MD 15-Mar-2019 18:37:02
[2019-03-15] MEDS ORDERED: ASPIRIN 81 MG TABLET, CHEWABLE PO ONE (18:43)
--- NOTE | 2019-03-15 18:45 | ER Document Report ---
ED Medical Screen (RME) - General Chief Complaint: Chest Pain Stated Complaint: CHEST PAIN Time Seen by Provider: 03/15/19 18:42 Primary Care Provider: SONIYA CORTEZ MD [Primary Care Provider] - Follow up as needed Notes: HPI: 38-year-old female with history of SVT and atrial fibrillation who is not on medication for same presenting to the emergency department complaining of increasing episodes of elevated heart rate with chest pain and shortness of breath. States heart rate has been up to 140 today. Patient has been on a Holter monitor intermittently, states she has been having episodes of SVT and atrial fibrillation over the last 3 to 4 days. She is working to establish with a new news videographer at this time. Currently with mild chest pressure, no shortness of breath I have greeted and performed a rapid initial assessment of this patient. A comprehensive ED assessment and evaluation of the patient, analysis of test results and completion of the medical decision making process will be conducted by additional ED providers PHYSICAL EXAMINATION: GENERAL: Well-appearing, well-nourished and in mild acute distress. HEAD: Atraumatic, normocephalic. EYES: sclera anicteric, conjunctiva are normal. ENT: Moist mucous membranes. NECK: Normal range of motion LUNGS: Normal work of breathing, clear to auscultation HEART: 2+ radial pulses bilaterally, regular rate and rhythm ABD: limited by positioning for exam in triage. EXTREMITIES: no pitting or edema. No cyanosis. NEUROLOGICAL: No focal neurological deficits. Moves all extremities spontaneously and on command. PSYCH: Normal mood, normal affect. SKIN: Warm, Dry, normal turgor, no rashes or lesions noted. TRAVEL OUTSIDE OF THE [place] IN LAST 30 DAYS: No - Related Data Allergies/Adverse Reactions: tree nuts Allergy (Severe, Uncoded 07/14/18 08:47) itch,stuffy head Past Medical History - Past Medical History Cardiac Medical History: Denies: Hx Coronary Artery Disease, Hx Heart Attack, Hx Hypertension Pulmonary Medical History: Denies: Hx Asthma, Hx Bronchitis, Hx COPD, Hx Pneumonia Neurological Medical History: Denies: Hx Cerebrovascular Accident, Hx Seizures Renal/ Medical History: Denies: Hx Peritoneal Dialysis Musculoskeltal Medical History: Denies Hx Arthritis Past Surgical History: Reports: Hx Section, Hx Cholecystectomy, Hx Orthopedic Surgery - right knee sx. Denies: Hx Pacemaker - Immunizations Immunizations up to date: Yes Hx Diphtheria, Pertussis, Tetanus Vaccination: Yes Physical Exam - Vital signs Vitals: Temp Pulse Resp BP Pulse Ox 98.1 F 75 16 131/83 H 100 03/15/19 17:41 03/15/19 17:41 03/15/19 17:41 03/15/19 17:41 03/15/19 17:41 Course - Vital Signs Vital signs: Temp Pulse Resp BP Pulse Ox 98.1 F 75 16 131/83 H 100 03/15/19 17:41 03/15/19 17:41 03/15/19 17:41 03/15/19 17:41 03/15/19 17:41 Doctor's Discharge - Discharge Referrals: SONIYA CORTEZ MD [Primary Care Provider] - Follow up as needed
--- NOTE | 2019-03-15 19:03 | RADIOLOGY REPORT (SQ) ---
EXAM DESCRIPTION: CHEST 2 VIEWS COMPLETED DATE/TIME: 03/15/2019 6:55 pm REASON FOR STUDY: svt/cp COMPARISON: None. EXAM PARAMETERS: NUMBER OF VIEWS: two views TECHNIQUE: Digital Frontal and Lateral radiographic views of the chest acquired. RADIATION DOSE: NA LIMITATIONS: none FINDINGS: LUNGS AND PLEURA: No opacities, masses or pneumothorax. No pleural effusion. MEDIASTINUM AND HILAR STRUCTURES: No masses or contour abnormalities. HEART AND VASCULAR STRUCTURES: Heart normal size. No evidence for failure. BONES: No acute findings. HARDWARE: None in the chest. OTHER: No other significant finding. IMPRESSION: NO ACUTE RADIOGRAPHIC FINDING IN THE CHEST. TECHNICAL DOCUMENTATION: JOB ID: [id number] [employer]- All Rights Reserved Reading location - IP/workstation name: [email or web address]
[2019-03-15 19:39] LABS: ABSOLUTE BASOPHILS # (AUTO) 0.1 10^3/uL (0.0-0.2); ABSOLUTE EOSINOPHILS # (AUTO) 0.1 10^3/uL (0.0-0.6); ABSOLUTE MONOCYTES (AUTO) 0.7 10^3/uL (0.1-1.4); LYMPHOCYTES % (AUTO) 25.3 % (13-45); TOTAL CELLS COUNTED % (AUTO) 100 %
[2019-03-15 19:49] LABS: ABSOLUTE LYMPHOCYTES (AUTO) 2.6 10^3/uL (0.5-4.7); ABSOLUTE NEUT (AUTO) 6.7 10^3/uL (1.7-8.2); BASOPHILS % (AUTO) 0.5 % (0-2); EOSINOPHILS % (AUTO) 1.5 % (0-6); HEMATOCRIT 42.6 % (36.0-47.0); HEMOGLOBIN 14.7 g/dL (12.0-15.5); MEAN CORPUSCULAR HEMOGLOBIN 32.1 pg (27.0-33.4); MEAN CORPUSCULAR HGB CONC 34.5 g/dL (32.0-36.0); MEAN CORPUSCULAR VOLUME 93 fl (80-97); MONOCYTES % (AUTO) 7.1 % (3-13); PLATELET COUNT 398 10^3/uL (150-450); RED BLOOD COUNT 4.58 10^6/uL (3.72-5.28); RED CELL DISTRIBUTION WIDTH 12.3 % (11.5-14.0); SEGMENTED NEUTROPHILS % (AUTO) 65.6 % (42-78); WHITE BLOOD COUNT 10.2 10^3/uL (4.0-10.5)
[2019-03-15 19:59] LABS: ALBUMIN 4.7 g/dL (3.5-5.0); ALKALINE PHOSPHATASE 55 U/L (38-126); ANION GAP 11 (5-19); ASPARTATE AMINO TRANSFERASE 15 U/L (14-36); BILIRUBIN,TOTAL 0.5 mg/dL (0.2-1.3); BLOOD UREA NITROGEN 10 mg/dL (7-20); CALCIUM 9.5 mg/dL (8.4-10.2); CARBON DIOXIDE 22 mmol/L (22-30); CHLORIDE 108 mmol/L (98-107); GLUCOSE 74 mg/dL (75-110); TOTAL PROTEIN 7.4 g/dL (6.3-8.2)
== END 2019-03-16 00:30 | disposition left against medical advice (07) ==
LOC: ER 17:24
DX: R07.89 Other chest pain (principal); R06.02 Shortness of breath; Z91.018 Allergy to other foods; Z53.20 Procedure and treatment not carried out because of patient's decision for unspecified reasons
CPT/HCPCS: 36415; 71046; 80053; 83735; 84443; 84484; 84703; 85025; 93005; 93010